=== PATIENT | male | born 1975 ===

== ENCOUNTER 2022-08-22 07:04 | Day surgery (SDC) | payer OTHER ==
[~2022-08-22] VITALS: Ht 167.6 cm; Wt 62.6 kg
[~2022-08-22 07:04] MED LIST: PROAIR RESPICL90 MCG IH; SINGULAIR10 MG PO
== END 2022-08-22 16:10 | disposition home or self-care (01) ==
LOC: CIR.AMB 07:04
PROVIDERS: ATTEND Specialist
DX: D17.1 Benign lipomatous neoplasm of skin and subcutaneous tissue of trunk (principal); Z20.822 Contact with and (suspected) exposure to COVID-19; Z87.891 Personal history of nicotine dependence